=== PATIENT | male | born 1960 | race Caucasian/White ===

== ENCOUNTER 2016-09-14 10:15 | Inpatient (IN) | payer OTHER ==
[2016-09-14 11:32] LABS: BASOPHIL 0.1 % (0-2); EOSINOPHIL 0.3 % (0-5); HCT 30.4 % (42.0-52.0); HGB 10.4 g/dl (13.2-18.0); LYMPHOCYTE 4.6 % (15-48); MCH 27.2 pg (25.0-31.0); MCHC 34.2 g/dL (32.0-36.0); MCV 79.6 fL (78.0-100.0); MONOCYTE 4.1 % (0-12); MPV 9.7 fL (6.0-9.5); NEUTROPHIL 90.9 % (41-80); PLT 315 K/uL (150-400); RBC 3.82 M/uL (4.70-6.00); RDW 13.5 % (11.5-14.0); WBC 9.5 K/uL (4.0-10.5)
[2016-09-14 11:54] LABS: ALBUMIN 3.3 g/dL (3.5-5.0); BILIRUBIN - TOTAL 0.5 mg/dL (0.1-1.0); CREATININE 0.4 mg/dL (0.7-1.2); GLOBULIN (CALCULATION) 2.7 g/dL (2.2-4.2); POTASSIUM 3.7 mmol/L (3.5-5.1)
[2016-09-15 05:34] LABS: CREATININE 0.4 mg/dL (0.7-1.2); POTASSIUM 3.7 mmol/L (3.5-5.1)
[2016-09-16 05:04] LABS: HGB 9.7 g/dl (13.2-18.0); MCH 27.1 pg (25.0-31.0); MCHC 33.4 g/dL (32.0-36.0); MPV 9.3 fL (6.0-9.5); RBC 3.58 M/uL (4.70-6.00); RDW 13.6 % (11.5-14.0); WBC 7.9 K/uL (4.0-10.5)
[2016-09-16 05:23] LABS: CREATININE 0.4 mg/dL (0.7-1.2); POTASSIUM 3.2 mmol/L (3.5-5.1)
[2016-09-17 05:30] LABS: CREATININE 0.4 mg/dL (0.7-1.2); POTASSIUM 3.4 mmol/L (3.5-5.1)
[2016-09-18 04:22] LABS: CREATININE 0.5 mg/dL (0.7-1.2); MAGNESIUM 1.46 mg/dL (1.40-2.10); POTASSIUM 3.5 mmol/L (3.5-5.1)
[2016-09-19 04:30] LABS: CREATININE 0.4 mg/dL (0.7-1.2); POTASSIUM 4.1 mmol/L (3.5-5.1)
[2016-09-20 04:51] LABS: HCT 35.3 % (42.0-52.0); HGB 11.7 g/dl (13.2-18.0); MCH 27.3 pg (25.0-31.0); MCHC 33.1 g/dL (32.0-36.0); MCV 82.5 fL (78.0-100.0); RBC 4.28 M/uL (4.70-6.00); RDW 14.4 % (11.5-14.0); WBC 7.5 K/uL (4.0-10.5)
[2016-09-20 05:11] LABS: ALBUMIN 3.5 g/dL (3.5-5.0); BILIRUBIN - TOTAL 0.3 mg/dL (0.1-1.0); CREATININE 0.4 mg/dL (0.7-1.2); GLOBULIN (CALCULATION) 3.4 g/dL (2.2-4.2); POTASSIUM 4.1 mmol/L (3.5-5.1); TOTAL PROTEIN 6.9 g/dL (6.4-8.3)
[2016-09-20 06:46] LABS: URINE CHLORIDE 64.4 mmol/L; URINE CREATININE 32.6 mg/dL (40-278); URINE POTASSIUM 12.75 mmol/L
[2016-09-21 06:10] LABS: HCT 33.4 % (42.0-52.0); HGB 11.1 g/dl (13.2-18.0); MCH 27.1 pg (25.0-31.0); MCHC 33.2 g/dL (32.0-36.0); MCV 81.7 fL (78.0-100.0); MPV 10.2 fL (6.0-9.5); RBC 4.09 M/uL (4.70-6.00); RDW 14.2 % (11.5-14.0); WBC 6.4 K/uL (4.0-10.5)
[2016-09-21 06:26] LABS: CREATININE 0.4 mg/dL (0.7-1.2); POTASSIUM 4.2 mmol/L (3.5-5.1)
[2016-09-21] MEDS ORDERED: OXYCONTIN 10MG10 MG PO (11:14)
[2016-09-21] MEDS ORDERED: DURAGESIC 75MC75 MCG TOP (11:14)
[2016-09-21] MEDS ORDERED: ATIVAN1 MG PO (11:15)
[2016-09-21] MEDS ORDERED: CREON DR 24,001 EACH PO (11:16)
[2016-09-21] MEDS ORDERED: ZOLOFT50 MG PO (11:17)
[2016-09-21] MEDS ORDERED: FEOSOL325 MG PO (11:18)
[2016-09-21] MEDS ORDERED: BENTYL10 MG PO (11:19)
[2016-09-21] MEDS ORDERED: FOLIC ACID1 M1 PO (11:19)
[2016-09-21] MEDS ORDERED: PRILOSEC20 MG PO (11:19)
[2016-09-21] MEDS ORDERED: VENTOLIN HFA IN18 GM PO (11:35)
[2016-09-21] MEDS ORDERED: CARAFATE1 GM PO (11:57)
[2016-09-21] MEDS ORDERED: MOBIC7.5 MG PO (11:58)
[2016-09-21] MEDS ORDERED: CERTAGEN1 EACH PO (11:58)
[2016-09-21] MEDS ORDERED: ZANTAC150 MG PO (11:58)
[2016-09-21] MEDS ORDERED: BENZONATATE200 MG PO (11:59)
[2016-09-21] MEDS ORDERED: AUGMENTIN 875-1 EACH PO (11:59)
[2016-09-21] MEDS ORDERED: B-1100 MG PO (12:00)
== END 2016-09-21 12:22 | DRG 643 ==
LOC: FER 10:15 → FMS 13:45
PROVIDERS: Internal Medicine; ADMIT Internal Medicine
DX: E22.2 Syndrome of inappropriate secretion of antidiuretic hormone (principal); E43 Unspecified severe protein-calorie malnutrition; C79.51 Secondary malignant neoplasm of bone; C76.0 Malignant neoplasm of head, face and neck; C61 Malignant neoplasm of prostate; K86.1 Other chronic pancreatitis; J44.9 Chronic obstructive pulmonary disease, unspecified; G89.29 Other chronic pain; F41.9 Anxiety disorder, unspecified; F32.9 Major depressive disorder, single episode, unspecified; K57.90 Diverticulosis of intestine, part unspecified, without perforation or abscess without bleeding; Z91.041 Radiographic dye allergy status; R51 Headache; R91.1 Solitary pulmonary nodule; F17.200 Nicotine dependence, unspecified, uncomplicated; M89.9 Disorder of bone, unspecified
CPT/HCPCS: 36415; 70450; 70490; 70551; 71020; 71250; 80048; 80053; 82436; 82570; 83735; 83930; 83935; 84133; 84152; 84295; 84300; 85025; 94010; 94640; 97110; 97116; 97161; 97166; 97530; 97530-GP; G0480; J2270; J2405; J3475